=== PATIENT | male | born 1980 | race Caucasian/White ===

== ENCOUNTER 2019-03-06 12:24 | Emergency (ER) | payer OTHER, MEDICAID ==
[~2019-03-06] VITALS: Ht 182.9 cm; Wt 155.1 kg
[2019-03-06 12:38] VITALS: Ht 182.9 cm; Wt 155.1 kg
[2019-03-06 14:07] VITALS: BP 128/61
== END 2019-03-06 14:07 | disposition home or self-care (01) ==
LOC: ED 12:24
DX: S39.012A Strain of muscle, fascia and tendon of lower back, initial encounter (principal); V49.49XA Driver injured in collision with other motor vehicles in traffic accident, initial encounter; Y93.I9 Activity, other involving external motion; Y92.413 State road as the place of occurrence of the external cause; Y99.8 Other external cause status
CPT/HCPCS: J1885